=== PATIENT | male | born 1965 | race Caucasian/White ===

== ENCOUNTER 2019-08-13 19:12 | Emergency (ER) | payer BC ==
[~2019-08-13] VITALS: Ht 175.3 cm; Wt 104.3 kg
[2019-08-13] MEDS ORDERED: FLEXERIL PO (20:47)
[2019-08-13] MEDS ORDERED: PERCOCET 7.5-31 EACH PO (20:47)
[2019-08-13 21:19] VITALS: BP 128/84
== END 2019-08-13 21:21 | disposition home or self-care (01) ==
LOC: M.ERS 19:12
DX: M54.5 Low back pain (principal); Z88.5 Allergy status to narcotic agent